=== PATIENT | female | born 1985 | race African-American/Black ===

== ENCOUNTER 2017-09-08 13:15 | Emergency (ER) | payer MEDICAID, OTHER ==
[~2017-09-08] VITALS: Ht 175.3 cm; Wt 69.0 kg
[2017-09-08] MEDS ORDERED: SODIUM CHLORIDE 0.9% 1,000 ML IV ONE (13:35)
[2017-09-08 14:23] LABS: BASOPHILS % 0.5 % (0.0-2.0); EOSINOPHILS % 0.1 % (0.0-5.0); HEMATOCRIT. 41.2 % (36.0-48.0); HEMOGLOBIN. 14.2 g/dL (12.0-16.0); LYMPHOCYTES % 29.7 % (20.0-50.0); MEAN CORPUSCULAR HEMOGLOBIN 32.6 pg (28.0-32.0); MEAN CORPUSCULAR VOLUME 94.9 fL (81.0-99.0); MEAN PLATELET VOLUME 9.3 fl (7.4-10.4); MONOCYTES % 8.6 % (2.0-8.0); NEUTROPHILS % 61.1 % (40.0-76.0); PLATELET 252 x1000/uL (130-400); RED BLOOD CELL COUNT 4.35 mill/uL (4.2-5.4); RED CELL DISTRIBUTION WIDTH 12.5 % (11.6-14.6)
[2017-09-08 14:28] LABS: CHLORIDE 99 mEq/L (98-107)
[2017-09-08 14:43] LABS: HCG SCREEN NEGATIVE
[2017-09-08 17:46] VITALS: BP 123/71
== END 2017-09-08 17:52 | disposition home or self-care (01) ==
LOC: ER 13:15
DX: R55 Syncope and collapse (principal); F17.200 Nicotine dependence, unspecified, uncomplicated
CPT/HCPCS: 36415; 71045; 80048; 84703; 85025; 87804; 93005; 96360; 96361; 99285; J7030

== ENCOUNTER 2018-06-06 11:05 | Emergency (ER) | payer SELFPAY ==
[~2018-06-06] VITALS: Ht 172.7 cm; Wt 68.0 kg
[2018-06-06 13:29] LABS: CLARITY URINE CLEAR (CLEAR); COLOR URINE YELLOW (YELLOW); KETONES URINE 3+ (NEGATIVE); LEUKOCYTE ESTERASE URINE NEGATIVE (NEGATIVE); NITRITE URINE NEGATIVE (NEGATIVE); OCCULT BLOOD URINE NEGATIVE (NEGATIVE); PH URINE 5.5 (4.5-8.0); PROTEIN URINE NEGATIVE (NEGATIVE); SPECIFIC GRAVITY URINE 1.015 (1.005-1.030); UROBILINOGEN URINE 0.2 E.U./dL (0.2-1.0)
[2018-06-06] MEDS ORDERED: SODIUM CHLORIDE 0.9% 1,000 ML IV ONE ×2 (13:29→15:45)
[2018-06-06] MEDS ORDERED: ONDANSETRON HCL 4MG/2ML INJ IV STA (13:29)
[2018-06-06 14:24] LABS: BASOPHILS % 0.6 % (0.0-2.0); EOSINOPHILS % 0.1 % (0.0-5.0); HEMATOCRIT. 43.4 % (36.0-48.0); HEMOGLOBIN. 14.7 g/dL (12.0-16.0); LYMPHOCYTES % 30.4 % (20.0-50.0); MEAN CORPUSCULAR HEMOGLOBIN 32.7 pg (28.0-32.0); MEAN CORPUSCULAR VOLUME 96.4 fL (81.0-99.0); MEAN PLATELET VOLUME 8.8 fl (7.4-10.4); MONOCYTES % 4.7 % (2.0-8.0); NEUTROPHILS % 64.2 % (40.0-76.0); PLATELET 316 x1000/uL (130-400); RED CELL DISTRIBUTION WIDTH 12.3 % (11.6-14.6)
[2018-06-06 14:29] LABS: CHLORIDE 101 mEq/L (98-107)
[2018-06-06 14:30] LABS: PROTHROMBIN TIME 10.4 sec (9.1-11.1)
[2018-06-06 16:44] VITALS: BP 116/84
== END 2018-06-06 16:44 | disposition home or self-care (01) ==
LOC: ER 11:05
DX: R53.1 Weakness (principal); R11.2 Nausea with vomiting, unspecified; F12.10 Cannabis abuse, uncomplicated
CPT/HCPCS: 36415; 80053; 81003; 81025; 83690; 85025; 85610; 96360; 96361; 99283; J2405; J7030